=== PATIENT | female | born 1960 | race Caucasian/White ===

== ENCOUNTER 2018-03-04 11:57 | Inpatient (IN) ==
[2018-03-04] MEDS ORDERED: Ondansetron 4 MG/2 ML VIAL IVP ONE (12:01)
[2018-03-04] MEDS ORDERED: *HR* FentaNYL (PF) 100 MCG/2 ML VIAL IVP ONE ×2 (12:01→12:51)
[2018-03-04] MEDS ORDERED: Ketorolac 15 MG/ML VIAL IVP ONE (12:01)
[2018-03-04] MEDS ORDERED: Tdap (Boostrix) Vaccine 0.5 ML SYRINGE IM ONE (12:02)
--- NOTE | 2018-03-04 12:11 | Emergency Department Note ---
Disposition Clinical Impression: Shoulder dislocation Qualifiers: Encounter type: initial encounter Laterality: right Qualified Code(s): S43.004A - Unspecified dislocation of right shoulder joint, initial encounter Facial laceration Qualifiers: Encounter type: initial encounter Qualified Code(s): S01.81XA - Laceration without foreign body of other part of head, initial encounter Disposition: Admitted As Inpatient Condition: Good Instructions: Shoulder Dislocation Exercises (GEN), Shoulder Dislocation (ED), Laceration (ED), Head Injury (ED) Prescriptions: HYDROcodone/Acet 10/325 mg [[place] 10-325 mg] 1 tab PO Q6HR PRN 3 Days #20 tab PRN Reason: Pain Ibuprofen [Motrin] 800 mg PO Q8HR PRN #14 tablet PRN Reason: Pain Referrals: Richard Flores DO [Non-Partnered Physician] - Forms: ED Satisfaction Letter Time of Disposition: 13:58 Trauma HPI - General Chief Complaint: ED Trauma Stated Complaint: Ran over by horse Time Seen by Provider: 03/04/18 11:59 Source: patient, EMS Mode of arrival: EMS Limitations: no limitations Nursing Notes Reviewed: Yes Vital Signs Reviewed: Yes - History of Present Illness HPI Narrative: Patient states she was trampled by a horse just prior to arrival. She complains of right humerus pain and neck pain. Possible loss of consciousness. She does not take blood thinners. She denies other head injury, chest injury , abdominal pain, pain to any of her extremities other than her right humerus. No hip or pelvic pain. Patient given morphine prehospital by EMS with no improvement in pain. Pt Subjective Complaint: injury - Related Data Previous Rx's Medication Instructions Recorded HYDROcodone/Acet 10/325 mg [[place] 1 tab PO Q6HR PRN 3 Days #20 tab 03/04/18 10-325 mg] Ibuprofen [Motrin] 800 mg PO Q8HR PRN #14 tablet 03/04/18 Allergies Allergy/AdvReac Type Severity Reaction Status Date / Time Amoxicillin [From Augmentin] Allergy Rash Verified 07/27/15 19:15 cephalexin [From Keflex] Allergy Rash Verified 07/27/15 19:15 clavulanic acid Allergy Rash Verified 07/27/15 19:15 [From Augmentin] Penicillins Allergy Rash Verified 07/27/15 19:15 All systems ED: reviewed and negative except as stated. Constitutional: Reports: as per HPI Eyes: Reports: as per HPI ENT ED: Reports: as per HPI Cardiovascular: Reports: as per HPI Respiratory: Reports: sputum production Gastrointestinal: Reports: as per HPI Genitourinary: Reports: as per HPI Musculoskeletal: Reports: neck pain, other (Right humerus pain) Integumentary: Reports: other (Laceration to forehead) Neurological: Reports: as per HPI Psychiatric: Reports: as per HPI Endocrine: Reports: as per HPI Hematological/Lymphatic: Reports: as per HPI Allergic/Immunologic: Reports: as per HPI Past Medical History - Past Medical History Source: patient Medical history: Reports: no medical history Surgical history: Reports: breast surgery 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 - Social History Smoking Status: Never smoker Alcohol use: Reports: none Drug use: Reports: none Physical Exam - General Limitations: other (Uncomfortable appearing) General appearance: alert, anxious - Head Head exam: other (2.5 cm transverse superficial abrasion to forehead) - Eye Eye exam: Present: normal appearance, PERRL - ENT ENT exam: normal exam - Neck Neck exam: Present: normal inspection, full ROM - Chest Chest inspection: Present: normal inspection, symmetric chest wall rise - Respiratory Respiratory exam: Present: normal lung sounds bilaterally - Cardiovascular Cardiovascular exam: Present: regular rate, normal rhythm, normal heart sounds - Abdominal Exam Abdominal exam: Present: soft, Non-Tender. Absent: tenderness - Rectal Exam Rectal exam: Present: deferred - Expanded Upper Extremity Exam Shoulder exam: Present: tenderness, swelling, deformity, other (Decreased range of motion at proximal humerus). Absent: full ROM Arm exam: Present: tenderness, swelling. Absent: full ROM Elbow exam: Present: normal inspection Forearm/Wrist exam: Present: normal inspection Hand exam: Present: normal inspection - Neurological Exam Neurological exam: Present: alert, oriented X3, CN II-XII intact - Psychiatric Psychiatric exam: Present: anxious - Skin Skin exam: Present: warm, dry Course Course Narrative: Patient presents after a blunt injury from a horse. Concern for fracture to her right proximal humerus. Superficial laceration to forehead. She complains of neck pain so also image her head and neck by CT scan. Tetanus to be updated. Analgesics to be offered - Reevaluation(s) Reevaluation #1: Orthopedics at bedside to perform closed reduction (Dr. Flores). Sedation performed by or. Patient tolerated procedure well. Orthopedist recommends outpatient follow-up in his office with an arm sling. Analgesics to be ordered Reevaluation #2: Dr. Flores has reviewed the post reduction films. He recs admission to medicine service - Consultations Consultation #1: call placed to Dr. Flores, ortho phonograph mechanic. xray images sent to Dr. Flores. He will evaluate patient in ER Vital Signs Temperature 97.9 F 03/04/18 12:00 Pulse Rate 100 03/04/18 12:00 Respiratory Rate 20 03/04/18 12:00 Blood Pressure 155/77 03/04/18 12:00 O2 Sat by Pulse Oximetry 98 03/04/18 12:00 Temperature 97.9 F 03/04/18 12:00 Pulse Rate 79 03/04/18 14:07 Respiratory Rate 14 03/04/18 14:07 Blood Pressure 139/84 03/04/18 14:07 O2 Sat by Pulse Oximetry 100 03/04/18 14:07 Oxygen Delivery Oxygen Delivery [] Nasal Cannula Oxygen Delivery [] Nasal Cannula Oxygen Delivery [] Nasal Cannula Oxygen Delivery Room Air Procedures - Laceration Laceration 1 Site: face Side (If applicable): left Description: linear Depth: simple, single layer Pre-repair: irrigated extensively Skin layer closed with: skin glue - Orthopedic Fracture Reduction Fracture #1 Consent Obtained: written consent Time Out Performed: Yes Side: right Fracture Reduction Location: humerus ASA Classification: CLASS I-Normal, healthy patient Analgesia: procedural sedation Technique: direct manipulation Post Reduction X-rays Demonstrate: other Splint Applied: Yes Patient Tolerated Procedure: well Trauma - Radiology Data Radiology results reviewed: Yes I reviewed the patient's radiology results.
[2018-03-04] MEDS ORDERED: *HR* Propofol 500 MG/50 ML BOTTLE IVP ONE (13:29)
[2018-03-04] MEDS ORDERED: Naloxone 0.4 MG/ML INJ IVP PRN (14:47)
[2018-03-04 14:53] LABS: Basophils % 0.1 %; Hematocrit 37.3 % (35.3-44.9); Hemoglobin 12.7 g/dL (11.5-15.4); Immature Granulocytes % 0.5 % (0-4); Lymphocytes # 0.6 K/mcL (0.6-4.6); Lymphocytes % 5.7 %; Mean Corpuscular Hemoglobin 29.8 pg (28.0-33.3); Mean Corpuscular Volume 87.6 fL (83.0-100.0); Mean Platelet Volume 11.6 fL (9.4-12.4); Monocytes # 0.5 K/mcL (0.0-1.3); Monocytes % 4.7 %; Neutrophils # 9.9 K/mcL (1.6-8.9); Platelet Count 151 K/mcL (140-400); Red Blood Count 4.26 M/mcL (3.82-4.97); Red Cell Distribution Width 13.8 % (11.5-14.5)
[2018-03-04] MEDS ORDERED: 0.9 % Sodium Chloride 1,000 ML IVC SCH (15:00)
[2018-03-04 15:01] LABS: INR 1.1; Prothrombin Time 12.4 Seconds (9.4-12.1)
[2018-03-04 15:12] LABS: BUN/Creatinine Ratio 21 (6-26); Blood Urea Nitrogen 14 mg/dL (6-20); Carbon Dioxide 26 mEq/L (23-29); Chloride 112 mEq/L (98-107); Creatine Kinase 112 Units/L (30-223); Glucose 135 mg/dL (70-105); Magnesium 1.9 mg/dL (1.6-2.6); Osmolality,Calculated 299 (280-300); Phosphorous 2.3 mg/dL (2.7-4.5); Potassium 4.2 mEq/L (3.5-5.1); Sodium 143 mEq/L (136-145); eGFR For African Americans > 60 (> 60); eGFR For Non-African Americans > 60 (> 60)
--- NOTE | 2018-03-04 15:31 | Internal Med History&Physical ---
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 she sustained loss of consciousness after which she came to with severe shoulder pain. In the ER she was noted to havepossible dislocation. A shoulder xray was done which showed possible dislocation and fracture of the neck of the humerus. A reduction was unsuccessfully attempted in the ER. She has been seen by orthopedic surgery and is scheduled for shoulder surgery Past Med Surg Social Fam HX - Past Medical History Medical history: no medical history Psychiatric history: no psych history - Past Surgical History Surgical History: breast surgery Additional surgical history: breast reduction - Social History Smoking Status: Never smoker Smokeless Tobacco Status: No Alcohol use: none Drug use: none Internal Medicine - H&P: Meds Cholecalciferol (Vitamin D3) [Vitamin D] 2,000 unit PO DAILY 03/04/18 [History] HYDROcodone/Acet 10/325 mg [[place] 10-325 mg] 1 tab PO Q6HR PRN 3 Days #20 tab [Rx] Ibuprofen [Motrin] 800 mg PO Q8HR PRN #14 tablet 03/04/18 [Rx] Meloxicam 15 mg PO DAILY 03/04/18 [History] Multivit-Min/FA/Lycopen/Lutein [A Thru Z Select Multivit Tab] 1 tab PO DAILY 11/17 [History] 3 Allergy/AdvReac Type Severity Reaction Status Date / Time Amoxicillin [From Augmentin] Allergy Rash Verified 07/27/15 19:15 cephalexin [From Keflex] Allergy Rash Verified 07/27/15 19:15 clavulanic acid Allergy Rash Verified 07/27/15 19:15 [From Augmentin] Penicillins Allergy Rash Verified 07/27/15 19:15 All Systems PM: A 10-system review of systems was performed and is negative for pertinent findings except as documented above in the HPI. - Constitutional Constitutional: no chills, no fever(s), no night sweats - EENT Eyes: no change in vision, no discharge, no pain, no photophobia Ears: no ear discharge, no ear pain, no tinnitus Nose, mouth and throat: no dysphagia, no nasal discharge, no neck pain, no sore throat - Cardiovascular Cardiovascular ROS IM: no chest pain, no diaphoresis, no dyspnea, no lightheadedness, no palpitations, no syncope - Respiratory Respiratory: no cough, no dyspnea, no wheezing, no excessive phlegm production - Gastrointestinal Gastrointestinal: no abdominal pain, no diarrhea, no hematemesis, no hematochezia, no melena, no nausea, no vomiting - Genitourinary Genitourinary: no change in urinary stream, no dysuria, no flank pain, no hematuria - Musculoskeletal Musculoskeletal ROS IM: as per HPI, no numbness, no tingling Additional comments: has left sided shoulder pain - Integumentary Integumentary IM: no rash, no unusual bruising - Neurological Neurological ROS: no confusion, no convulsions, no focal weakness, no numbness, no tingling, no tremor(s) - Hematologic/Lymphatic Hematologic/Lymphatic: no easy bruising - Constitutional Vitals: Temp Pulse Resp BP Pulse Ox 97.9 F 79 18 158/85 100 03/04/18 12:00 03/04/18 14:07 03/04/18 15:02 03/04/18 15:02 03/04/18 14:07 - Head Head exam: Present: atraumatic, normocephalic - Eye Eye exam: Present: PERRL, conjuntiva pink, sclera anicteric Pupils: Present: PERRL - Neck Neck exam general surgery: Present: supple, trachea midline. Absent: lymphadenopathy - Respiratory Respiratory exam: Present: CTAB. Absent: accessory muscle use, rales, rhonchi, wheezes - Cardiovascular Cardiovascular exam: Present: RRR, +S1, +S2. Absent: diastolic murmur, gallop, rubs, systolic murmur - GI/Abdominal GI/Abdominal exam: Present: normal bowel sounds, soft, no peritoneal signs. Absent: distended, tenderness - Extremities Exam Extremities exam: Present: warm, radial pulses palpable and symmetrical. Absent : calf tenderness, cyanotic, pedal edema Additional comments: left shoulder in sling - Neurological Exam Neurological exam: Present: CN II-XII intact, oriented X3, no focal deficits. Absent: pronater drift, facial droop, speech deficit - Skin Skin exam: Present: dry, intact Internal Med - H&P Results - Labs CBC & Chem 7: 03/04/18 14:43 03/04/18 14:43 Labs: Short CBC 03/04/18 Range/Units 14:43 WBC 11.2 H (4.3-11.1) K/mcL Hgb 12.7 (11.5-15.4) g/dL Hct 37.3 (35.3-44.9) % Plt Count 151 (140-400) K/mcL Neutrophils # 9.9 H (1.6-8.9) K/mcL BMP 03/04/18 14:43 Sodium 143 Potassium 4.2 Chloride 112 H Carbon Dioxide 26 BUN 14 Creatinine 0.66 Glucose 135 H Calcium 9.0 - Assessment and plan (1) Shoulder dislocation Current Visit: Yes Status: Acute Assessment and plan: left shoulder dislocation s/p being run over by a horse. Orthopedic surgery on board. Plan for surgery in am Qualifiers: Encounter type: initial encounter Laterality: right Qualified Code(s): S43.004A - Unspecified dislocation of right shoulder joint, initial encounter (2) Humerus head fracture Current Visit: Yes Status: Acute Assessment and plan: seen by orthopedic surgery. For surgery in am Qualifiers: Qualified Code(s): S42.293A - Other displaced fracture of upper end of unspecified humerus, initial encounter for closed fracture (3) DVT prophylaxis Current Visit: Yes Status: Acute Assessment and plan: heprain sc - Time Spent With Patient Total time spent is greater than 50% in coordination of care (as documented) at patient's floor/unit and/or counseling patient:
[2018-03-04] MEDS: OXYCODONE Oral CONC 10 MG/0.5 ML ORAL.SYG SL SCH ×3 (17:30→23:32)
--- NOTE | 2018-03-04 19:20 | Orthopedic Consult Note ---
Date of Encounter: 03/04/18 Time of Encounter: 19:17 History of Present Illness Chief complaint: Right shoulder pain HPI: Ms. Alegre is a 57 year old [id number] female who was run over/trampled by her horse today. The patient was trying to move the horse from an outdoor posture to an indoor arena where there was shade and fans when the horse apparently disagreed with the plan, and in essence, ran her over. Patient had immediate pain and was unable to use the arm. She was having some vague numbness and tingling in the arm. She was ultimately brought to the emergency room and [facility] were x-rays revealed a glenohumeral dislocation with a greater tuberosity fracture. There was a high index of suspicion for a proximal humerus fracture though this was not well delineated on the x-rays. Patient had a completed workup including CT scan of her neck. I saw the patient in the emergency room. She was noted to have some findings consistent with an axillary nerve injury as well as with the findings as noted. [place] that the patient had a possible chance at a successful reduction if this could be done gently and there was no humeral neck fracture present. With gentle anterior traction and the use of intravenous sedation as administered by the emergency room physician and attempt at closed reduction was made. There was a palpable change in the shoulder. Clinically improved, but x-rays revealed that the head remained dislocated in an anterior inferior position ( subglenoid) the tuberosity fragment and a more normal position and the shaft of the humerus in a more appropriate position. With this irreducible fracture dislocation noted the patient was admitted for more definitive management. 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 I did review the patient's completed history and physical exam as well as emergency room physician documentation. Pertinent orthopedic examination at this time reveals the right shoulder to be somewhat edematous. There is marked diminished sensation in axillary nerve distribution. Distally the sensation in the hand is intact in all 3 major nerves. I reviewed all the x-rays, injury and attempted postreduction films. These show the persistent dislocated humeral head and the shaft and the somewhat isolated greater tuberosity fragment. Impression: Complex fracture dislocation right glenohumeral joint with axillary nerve injury Recommendation: As noted attempt was made to perform a closed reduction in the emergency room but this was unsuccessful due to the presence of a surgical neck fracture with no connection between the head and the shaft. Attempts at reduction did not place any traction on the head. Had a very long discussion with the patient at bedside regarding the diagnosis and potential management options for this fracture. Unfortunately, there is a high risk of avascular necrosis of the humeral head even if we were able to reduce it and or reduce the dislocation and perform an open reduction and internal fixation of the fractures. In addition this would require a prolonged period of time for healing with a distinct possibility of avascular necrosis occurring either soon thereafter or at a later date. We also discussed surgical intervention in the form of a possible hemiarthroplasty. This would require a rotator cuff that is either intact or able to be repaired back to the prosthesis. The other surgical option would be a reverse ball total shoulder arthroplasty that this also has quite significant potential ramifications. Of significant concern is the axillary nerve injury, a reverse ball total shoulder would require axillary nerve function to provide deltoid innervation for functional recovery for a reverse ball shoulder replacement. I discussed with the patient that no matter what approach we take the shoulder will always have some residual functional loss. After thorough discussion patient elected to proceed with a hemiarthroplasty of the shoulder. We discussed the surgery as well as the possibility of her her requiring a reverse ball total shoulder should there be instability or other complicating features with a hemiarthroplasty. Spoke at length of the risks and complications including but not limited to bleeding, infection, further nerve injury, recurrent instability, stiffness and/or the need for further surgery or chronic pain management. Patient has requested we proceed with the hemiarthroplasty. Have scheduled her for surgery for tomorrow when operating time is available. Thank you very much for allowing me to see and care for Mrs. Alegre. This is an unfortunate injury with significant long-term ramifications. Sincerely, Richard Flores,DO Past Med Surg Social Fam HX - Past Medical History Medical history: no medical history Psychiatric history: no psych history - Past Surgical History Surgical History: breast surgery Additional surgical history: breast reduction - Social History Smoking Status: Never smoker Smokeless Tobacco Status: No Alcohol use: none Drug use: none - Family History Mother Age: 84 Family Member Ethnicity: Non- Living Status: Still Living Hx Family Cardiac Disorders: No Hx Family Respiratory Disorders: No Hx Family Cancer: No Hx Family GI Disorders: No Hx Family Genitourinary Disorders: No Hx Family Endocrine Disorder: No Hx Family Musculoskeletal Disorders: No Hx Family Neuromuscular Disorders: No Hx Family Neurologic Disorders: No Hx Family HEENT Disorders: No Hx Family Autoimmune Disorders: No Hx Family Reproductive Disorders: No Hx Family Psychosocial Disorders: No Hx Family Medical Disorders: No Medications and Allergies Cholecalciferol (Vitamin D3) [Vitamin D] 2,000 unit PO DAILY 03/04/18 [History] HYDROcodone/Acet 10/325 mg [[place] 10-325 mg] 1 tab PO Q6HR PRN 3 Days #20 tab [Rx] Ibuprofen [Motrin] 800 mg PO Q8HR PRN #14 tablet 03/04/18 [Rx] Meloxicam 15 mg PO DAILY 03/04/18 [History] Multivit-Min/FA/Lycopen/Lutein [A Thru Z Select Multivit Tab] 1 tab PO DAILY 11/17 [History] 3 Allergy/AdvReac Type Severity Reaction Status Date / Time Amoxicillin [From Augmentin] Allergy Rash Verified 07/27/15 19:15 cephalexin [From Keflex] Allergy Rash Verified 07/27/15 19:15 clavulanic acid Allergy Rash Verified 07/27/15 19:15 [From Augmentin] Penicillins Allergy Rash Verified 07/27/15 19:15 All Systems Reviewed: The remainder of the systems were reviewed and are negative Physical Exam - Constitutional Vitals: Temp Pulse Resp BP Pulse Ox 98.4 F 71 16 147/85 99 03/04/18 15:40 03/04/18 15:40 03/04/18 15:40 03/04/18 15:40 03/04/18 16:12 Results - Labs Result Diagrams: 03/04/18 14:43 03/04/18 14:43 Labs: Abnormal lab results WBC 11.2 K/mcL (4.3-11.1) H 03/04/18 14:43 Neutrophils # 9.9 K/mcL (1.6-8.9) H 03/04/18 14:43 PT 12.4 Seconds (9.4-12.1) H 03/04/18 14:43 Chloride 112 mEq/L (98-107) H 03/04/18 14:43 Glucose 135 mg/dL (70-105) H 03/04/18 14:43 Phosphorus 2.3 mg/dL (2.7-4.5) L 03/04/18 14:43 All other labs normal. - Diagnostic results Shoulder x-ray: image reviewed Consult Discharge Plan - Plan Referrals: Alejandra Jean MD [Primary Care Provider] -
[2018-03-05 01:14] LABS: Basophils % 0.1 %; Eosinophils % 0.4 %; Hematocrit 34.2 % (35.3-44.9); Hemoglobin 11.6 g/dL (11.5-15.4); Immature Granulocytes % 0.4 % (0-4); Lymphocytes # 1.7 K/mcL (0.6-4.6); Lymphocytes % 21.9 %; Mean Corpuscular HGB Conc 33.9 g/dL (31.6-35.5); Mean Corpuscular Hemoglobin 29.4 pg (28.0-33.3); Mean Corpuscular Volume 86.6 fL (83.0-100.0); Monocytes # 0.6 K/mcL (0.0-1.3); Monocytes % 7.6 %; Neutrophils # 5.5 K/mcL (1.6-8.9); Platelet Count 157 K/mcL (140-400); Red Blood Count 3.95 M/mcL (3.82-4.97); Red Cell Distribution Width 14.2 % (11.5-14.5); Segmented Neutrophils % 69.6 %
[2018-03-05 01:31] LABS: BUN/Creatinine Ratio 20 (6-26); Blood Urea Nitrogen 14 mg/dL (6-20); Calcium 8.8 mg/dL (8.6-10.3); Carbon Dioxide 22 mEq/L (23-29); Chloride 112 mEq/L (98-107); Glucose 122 mg/dL (70-105); Osmolality,Calculated 296 (280-300); Phosphorous 2.9 mg/dL (2.7-4.5); Potassium 3.7 mEq/L (3.5-5.1); Sodium 142 mEq/L (136-145); eGFR For African Americans > 60 (> 60); eGFR For Non-African Americans > 60 (> 60)
[2018-03-05] MEDS: OXYCODONE Oral CONC 10 MG/0.5 ML ORAL.SYG SL SCH ×5 (03:06→19:52)
--- NOTE | 2018-03-05 08:32 | Internal Med Progress Note ---
<Reinaldo Becerril - Last Filed: 03/05/18 16:37> Date of Encounter: 03/05/18 Time of Encounter: 11:00 - Assessment and plan (1) Humerus head fracture Current Visit: Yes Status: Acute Assessment and plan: Orthopedic surgery planning to operate. Qualifiers: Encounter type: initial encounter Fracture type: closed Laterality: right Qualified Code(s): S42.291A - Other displaced fracture of upper end of right humerus, initial encounter for closed fracture (2) Shoulder dislocation Current Visit: Yes Status: Acute Assessment and plan: Unable to be reduced in the ED. Orthopedic surgery planning for operation. Qualifiers: Encounter type: initial encounter Laterality: right Qualified Code(s): S43.004A - Unspecified dislocation of right shoulder joint, initial encounter (3) DVT prophylaxis Current Visit: Yes Status: Acute (4) Coccygeal pain, acute Current Visit: Yes Status: Acute Assessment and plan: X-ray of sacrum and coccyx was negative. - Time Spent With Patient Total time spent is greater than 50% in coordination of care (as documented) at patient's floor/unit and/or counseling patient: - Subjective Interval history: Ms. Alegre is a 57-year-old female who presented yesterday after being run over by a horse. 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 Admits to LOC, followed by severe shoulder pain. Patient was found to have a left humeral fracture with possible dislocation. Attempts at reduction were unsuccessful in the ED. Orthopedic surgery consulted. 03/05: No acute events overnight. During this entire patient was resting comfortably in bed. Patient complains of some shoulder pain, but admits to relief with pain medication. She is also complaining of some coccygeal pain, and nausea. Denies chest pain, shortness of breath, vomiting, numbness, or tingling. Denies bowel movement, but admits to flatus. No difficulty urinating. - Constitutional Vitals: Temp Pulse Resp BP Pulse Ox 97.7 F 83 18 158/92 96 03/05/18 07:02 03/05/18 07:02 03/05/18 07:02 03/05/18 07:02 03/05/18 07:02 General appearance: Present: A&O X 3, pleasant, answers questions appropriately Exam: Head: Atraumatic and normocephalic Eyes: Pupils PERRL, EOMI, conjunctiva pink, sclerae anicteric Neck: Supple, trachea midline Respiratory: Clear to auscultation bilaterally. No wheezes, rales, or rhonchi noted. Heart: RRR, plus S1, plus S2. No murmurs, clicks, or rubs noted. GI: Nondistended, nontender, soft, normal bowel sounds. Extremities: Warm, radial pulses palpable and symmetrical. Right arm and shoulder sling in place. No cyanosis or pedal edema noted. Neuro: Alert and oriented 3, no focal deficits, no speech difficulty. Skin: Warm, dry and intact. Internal Medicine: Result - Labs CBC & Chem 7: 03/05/18 00:39 03/05/18 00:39 Labs: Short CBC 03/05/18 Range/Units 00:39 WBC 7.9 (4.3-11.1) K/mcL Hgb 11.6 (11.5-15.4) g/dL Hct 34.2 L (35.3-44.9) % Plt Count 157 (140-400) K/mcL Neutrophils # 5.5 (1.6-8.9) K/mcL BMP 03/05/18 00:39 Sodium 142 Potassium 3.7 Chloride 112 H Carbon Dioxide 22 L BUN 14 Creatinine 0.70 Glucose 122 H Calcium 8.8 - ABG Interpretation ABG results: PT/INR, D-dimer PT 12.4 Seconds (9.4-12.1) H 03/04/18 14:43 - VTE Documentation of Mechanical Device: Intermittent pneumatic compression device Consult Discharge Plan - Plan Referrals: Alejandra Jean MD [Primary Care Provider] - <Derrell Stewart - Last Filed: 03/05/18 16:51> Date of Encounter: 03/05/18 - Assessment and plan (1) Shoulder dislocation Current Visit: Yes Status: Acute Qualifiers: Encounter type: initial encounter Laterality: right Qualified Code(s): S43.004A - Unspecified dislocation of right shoulder joint, initial encounter (2) Humerus head fracture Current Visit: Yes Status: Acute Qualifiers: Encounter type: initial encounter Fracture type: closed Laterality: right Qualified Code(s): S42.291A - Other displaced fracture of upper end of right humerus, initial encounter for closed fracture (3) DVT prophylaxis Current Visit: Yes Status: Acute (4) Coccygeal pain, acute Current Visit: Yes Status: Acute - Time Spent With Patient Total time spent is greater than 50% in coordination of care (as documented) at patient's floor/unit and/or counseling patient: - Constitutional Vitals: Temp Pulse Resp BP Pulse Ox 98.1 F 69 17 137/80 97 03/05/18 15:30 03/05/18 15:30 03/05/18 15:30 03/05/18 15:30 03/05/18 15:30 Internal Medicine: Result - Labs CBC & Chem 7: 03/05/18 00:39 03/05/18 00:39 Labs: Short CBC 03/05/18 Range/Units 00:39 WBC 7.9 (4.3-11.1) K/mcL Hgb 11.6 (11.5-15.4) g/dL Hct 34.2 L (35.3-44.9) % Plt Count 157 (140-400) K/mcL Neutrophils # 5.5 (1.6-8.9) K/mcL BMP 03/05/18 00:39 Sodium 142 Potassium 3.7 Chloride 112 H Carbon Dioxide 22 L BUN 14 Creatinine 0.70 Glucose 122 H Calcium 8.8 - ABG Interpretation ABG results: PT/INR, D-dimer PT 12.4 Seconds (9.4-12.1) H 03/04/18 14:43 - Impressions Impressions Sacrum and Coccyx X-Ray 03/05/18 11:21 IMPRESSION: No acute osseous abnormality of the sacrum or coccyx. D/ / Luis Genao MD / Luis Genao MD Interpreting Provider: Luis Genao MD - Attending Attestation I examined this patient and my medical decision-making was reviewed with the Resident Physician on 03/05/18. I agree with the documented findings, disposition and treatment plan as described except to the extent set forth below. 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 She was having some sacral pain and xray is negative. Dr. Alegre is having some pain. Awaiting OR. Exam alert. Comfortable at this time Heart not tachy Mucus membranes dry No wheeze Sling in place I/P 1. R humeral fracture - OR today. 2. Sacral pain Further diagnoses and plan as above.
[2018-03-05] MEDS ORDERED: Ondansetron 4 MG/2 ML VIAL IVP PRN (11:19)
[2018-03-05] MEDS ORDERED: OXYCODONE Oral CONC 10 MG/0.5 ML ORAL.SYG SL ONE (11:31)
--- NOTE | 2018-03-05 15:29 | Anesthesia Evaluation PreOp ---
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) Other Medical History: Denies Any Significant HX Anesthesia History: No Prior Anesthetic Complications, Past Anesthesia (breast reduction) Alcohol Use: none Drug use: none Medications and Allergies Cholecalciferol (Vitamin D3) [Vitamin D] 2,000 unit PO DAILY 03/04/18 [History] HYDROcodone/Acet 10/325 mg [[place] 10-325 mg] 1 tab PO Q6HR PRN 3 Days #20 tab [Rx] Ibuprofen [Motrin] 800 mg PO Q8HR PRN #14 tablet 03/04/18 [Rx] Meloxicam 15 mg PO DAILY 03/04/18 [History] Multivit-Min/FA/Lycopen/Lutein [A Thru Z Select Multivit Tab] 1 tab PO DAILY 11/17 [History] 3 Allergy/AdvReac Type Severity Reaction Status Date / Time Amoxicillin [From Augmentin] Allergy Rash Verified 07/27/15 19:15 cephalexin [From Keflex] Allergy Rash Verified 07/27/15 19:15 clavulanic acid Allergy Rash Verified 07/27/15 19:15 [From Augmentin] Penicillins Allergy Rash Verified 07/27/15 19:15 - Meds/Allergy Pre-op Review Medications Reviewed: Yes Allergies Reviewed: Yes Beta Blockers on Current Med List: No Anesthesia Results - Labs 03/05/18 00:39 03/05/18 00:39 - Imaging Additional studies: 03-04-18 CT C-spine: No acute abnormality of the cervical spine. 03-04-18 CT head: No acute intracranial abnormality. 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
[2018-03-05] MEDS ORDERED: Ketorolac 15 MG/ML VIAL IVP ONE (16:50)
[2018-03-05] MEDS ORDERED: *HR* Propofol 200 MG/20 ML VIAL IVP ONE ×2 (18:24→19:13)
[2018-03-05] MEDS ORDERED: *HR* FentaNYL (PF) 100 MCG/2 ML VIAL ONE ×2 (18:24→19:13)
[2018-03-05] MEDS ORDERED: *HR* Midazolam HCl 2 MG/2 ML VIAL ONE ×2 (18:24→19:13)
[2018-03-05] MEDS ORDERED: Lidocaine -MPF 2% 2 ML VIAL ONE ×2 (18:27→19:13)
[2018-03-05] MEDS ORDERED: Acetaminophen IV 1,000 MG/100 ML INFUS..BTL ONE (19:07)
[2018-03-05] MEDS ORDERED: *HR* Succinylcholine 200 MG/10 ML VIAL IVP ONE (19:13)
[2018-03-05] MEDS ORDERED: Lidocaine -MPF 4% 5 ML AMPUL ONE (19:13)
[2018-03-05] MEDS ORDERED: Ethanol\\Acetic Acid\\Na Ace\\Ben 1,000 ML IRRIG.SOLN IR ONE (19:28)
[2018-03-05] MEDS ORDERED: Clindamycin 900 MG/50 ML 900 MG/50 ML IV.SOLN IVPB ONE (19:58)
[2018-03-05] MEDS ORDERED: Pregabalin 75 MG CAPSULE ONE (19:58)
[2018-03-05] MEDS ORDERED: Ondansetron 4 MG/2 ML VIAL ONE (21:37)
[2018-03-05] MEDS ORDERED: Dexamethasone 4 MG/ML VIAL ONE (21:37)
[2018-03-05] MEDS ORDERED: *HR* Magnesium Sulfate 1 GM/2 ML VIAL ONE (23:38)
[2018-03-06] MEDS ORDERED: *HR* Labetalol 20 MG/4 ML SYRINGE IVP PRN (00:20)
[2018-03-06] MEDS ORDERED: Naloxone 0.4 MG/ML INJ IVP PRN (00:27)
[2018-03-06] MEDS ORDERED: Ondansetron 4 MG/2 ML VIAL IVP PRN (00:27)
[2018-03-06] MEDS ORDERED: 0.9 % Sodium Chloride 1,000 ML IVC SCH (00:27)
--- NOTE | 2018-03-06 00:40 | Anesthesia Evaluation Post Op ---
Date of Encounter: 03/06/18 Time of Encounter: 00:39 - Vital Signs Vital Signs: Vital Signs/O2 Sat/Glucose, Most Current Temp Pulse Resp BP Pulse Ox 03/06/18 00:36 98.8 F 62 14 160/89 96 03/06/18 00:26 98.8 F 68 16 153/87 93 03/06/18 00:16 79 12 157/87 93 03/06/18 00:06 81 12 166/79 99 03/05/18 23:56 98.6 F 75 16 163/77 98 - Airway Airway: Non-obstructed - Cardiovascular Regular Rate - Mental Status Mental Status: Alert & Oriented, Answers Appropriately, Asleep with brisk response to light stimulation - Pain Pain Scale: 0 Pain Scale used: Numeric (1 - 10) - Nausea Vomiting Nausea Vomiting: Not Present - Hydration Hydration: Tolerates oral liquids, Able to void, Has not voided - Discharge PostOp Status: Transfer Patient to floor Anes Supervising Prov Stmt: Pt seen/evaluated, VSS And pt has met criteria for discharge to floor. - MD Ana
[2018-03-06] MEDS: OXYCODONE Oral CONC 10 MG/0.5 ML ORAL.SYG SL SCH ×5 (00:45→15:38)
--- NOTE | 2018-03-06 00:51 | Operative Note ---
Date of procedure: 03/05/18 Pre-op diagnosis: 1. Comminuted fracture right proximal humerus 2. irreducible glenohumeral Post-op diagnosis: same Procedure: 1. Hemiarthroplasty right shoulder Implants: Biomet 8 x 122 mm humeral fracture stem with a 46 mm x 21 mm humeral head Complications: None Anesthesia: TAWANNA Surgeon: Richard Flores Was there an psychiatric technician assistant present: No Estimated blood loss (cc): 200 Specimen: None Condition: stable Disposition: PACU Procedure in Detail: Gross findings: Preoperative x-rays revealed a complex fracture dislocation of the right shoulder. The patient had a glenohumeral dislocation with isolation of the humeral head from the main shaft of the humerus. This was associated with an isolated greater tuberosity fracture. The head was is reducible, it was present in the anterior inferior subglenoid region. Clinically the patient had pain and swelling about the right shoulder with numbness in the axillary nerve distribution consistent with axillary nerve injury. Intraoperative was noted to be tremendous amount of soft tissue swelling and damage. There was the complex fracture noted. The head was present in the infra glenoid region anteriorly causing intense pressure upon the anterior structures including the axillary nerve and the muscular cutaneous nerve in the inferior coracoid region. There was massive amount of soft tissue injury including rupture of the clavipectoral fascia and marked amount of stripping from the humerus just distal to the fracture site. The long head of the biceps tendon was intact. The head was ultimately able to be removed from the inferior glenoid region. The subscapularis with the anterior tuberosities was isolated and tagged with FiberWire suture for later repair. Likewise the greater tuberosity fragment was tagged with FiberWire suture and traction for repair. The glenoid was noted to have relatively spared articular surfaces. No gross labral tears were noted. A cemented hemiarthroplasty was performed without complicating features noted. After placement of the prosthesis and repair of the tuberosities a well functioning stable shoulder was identified. Procedure patient was taken the operating room and while the hospital bed was administered general anesthesia. Patient was now transferred to the operating room table patient was now placed in modified beachchair position on the shoulder table with all pressure points well-padded. The right shoulder and pectoral girdle area now prepped and draped in normal standard fashion for surgery. Incision was made from the level of the clavicle and carried down the arm. Dissection was carried through the subcutaneous tissues where marked amount of hematoma and fluid was encountered. Swelling was quite significant. The deltopectoral interval was developed. The cephalic vein was retracted lateral with the deltoid. Massive amount of hematoma was now encountered. At this time the fracture hematoma was irrigated and evacuated. The biceps tendon was isolated and then the greater tuberosity fragment was isolated and tagged with # 2 FiberWire suture for traction of later repair. The head was now able to be removed from the infra glenoid region with the head being divided from the lesser tuberosity which was likewise tagged with #2 FiberWire suture for traction and repair. The glenoid was irrigated. No gross disturbance of the glenoid was noted. At this time attention was turned to the humerus. The humerus was reamed by hand up to and including a size 10. Size 10 trial was then placed. The trial was placed in about 30 degrees of retroversion. The head size was going to be a 46 with either a 21 or 24 mm height. At this time the trial components are removed. Cement restrictor was placed distally in the humerus. Numerous #5 FiberWire suture were now placed in the posterior, greater tuberosity fragment for later repair of the tuberosities. The humeral canal was then irrigated and dried with a combination of suction and sponges. The back table cement was mixed and the appropriate time the cement was instilled into the femur which was filled in a retrograde manner. The humeral stem was then placed into the cement and impacted in about 30 degrees of retroversion until it sat at the appropriate level. Excess cement was trimmed away. Compression was maintained upon the implants until cement had fully hardened. Cement cleanup was performed. This is followed by final trialing with a 46 x 21 mm head being selected. The Tapia taper on the stem was then cleaned and dried. The head was then placed and impacted with 3 sharp blows of mallet. Shoulder was now reduced. Excellent stable reduction was identified. The tuberosity fragments were then brought into position and then they multiple #5 FiberWire suture were used to secure the tuberosities to the fracture stem. This was supplemented with bone graft placed between the stem and the tuberosity fragments. Stable shoulder was identified clinically. At this time the wound was closed with #2 strata fix closing the deltopectoral interval. Subtendinous tissue were closed with multiple inverted interrupted 2- 0 undyed Vicryl. Skin was then approximated with a zip lock system followed by skin glue. Sterile dressing consisting of honeycomb foam dressing was applied and secured. Patient was placed into a sling. Patient was now awakened from anesthesia extubating operating room and transferred to the postanesthesia care unit in stable and satisfactory condition. All sponge needle and isthmic counts are correct. No specimens are sent for pathology.
[2018-03-06 01:54] LABS: Basophils % 0.1 %; Eosinophils % 0.1 %; Hematocrit 32.9 % (35.3-44.9); Hemoglobin 11.1 g/dL (11.5-15.4); Immature Granulocytes % 0.4 % (0-4); Lymphocytes # 0.6 K/mcL (0.6-4.6); Lymphocytes % 7.7 %; Mean Corpuscular HGB Conc 33.7 g/dL (31.6-35.5); Mean Corpuscular Hemoglobin 29.7 pg (28.0-33.3); Mean Platelet Volume 11.9 fL (9.4-12.4); Monocytes # 0.3 K/mcL (0.0-1.3); Monocytes % 3.4 %; Neutrophils # 6.7 K/mcL (1.6-8.9); Platelet Count 132 K/mcL (140-400); Red Blood Count 3.74 M/mcL (3.82-4.97); Red Cell Distribution Width 14.2 % (11.5-14.5); Segmented Neutrophils % 88.3 %
[2018-03-06 02:13] LABS: BUN/Creatinine Ratio 22 (6-26); Blood Urea Nitrogen 13 mg/dL (6-20); Calcium 8.6 mg/dL (8.6-10.3); Carbon Dioxide 23 mEq/L (23-29); Chloride 110 mEq/L (98-107); Glucose 140 mg/dL (70-105); Osmolality,Calculated 290 (280-300); Sodium 139 mEq/L (136-145); eGFR For African Americans > 60 (> 60); eGFR For Non-African Americans > 60 (> 60)
[2018-03-06] MEDS: Clindamycin 900 MG/50 ML 900 MG/50 ML IV.SOLN IVPB SCH ×2 (07:55→15:52)
--- NOTE | 2018-03-06 09:45 | Internal Med Progress Note ---
Date of Encounter: 03/06/18 Time of Encounter: 09:45 - Assessment and plan (1) Humerus head fracture Current Visit: Yes Status: Acute Qualifiers: Encounter type: initial encounter Fracture type: closed Laterality: right Qualified Code(s): S42.291A - Other displaced fracture of upper end of right humerus, initial encounter for closed fracture (2) Shoulder dislocation Current Visit: Yes Status: Acute Qualifiers: Encounter type: initial encounter Laterality: right Qualified Code(s): S43.004A - Unspecified dislocation of right shoulder joint, initial encounter (3) Coccygeal pain, acute Current Visit: Yes Status: Acute (4) DVT prophylaxis Current Visit: Yes Status: Acute - Time Spent With Patient Total time spent is greater than 50% in coordination of care (as documented) at patient's floor/unit and/or counseling patient: - Subjective Interval history: Ms. Alegre is a 57-year-old female who presented yesterday after being run over by a horse. 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 Admits to LOC, followed by severe shoulder pain. Patient was found to have a left humeral fracture with possible dislocation. Attempts at reduction were unsuccessful in the ED. Orthopedic surgery consulted. 03/05: No acute events overnight. During this entire patient was resting comfortably in bed. Patient complains of some shoulder pain, but admits to relief with pain medication. She is also complaining of some coccygeal pain, and nausea. Denies chest pain, shortness of breath, vomiting, numbness, or tingling. Denies bowel movement, but admits to flatus. No difficulty urinating. 03/06: No acute events overnight. Pt underwent hemiarthroplasty of right shoulder overnight. Pt resting comfortably in bed with no new complaints. States nausea resolved with medication. Denies chest pain, shortness of breath, vomiting, difficulty urinating, or diarrhea. Pt states she has been passing flatus since surgery. Denies any headache, numbness, or tingling. - Constitutional Vitals: Temp Pulse Resp BP Pulse Ox 99.4 F 87 17 124/87 94 03/06/18 06:55 03/06/18 06:55 03/06/18 06:55 03/06/18 06:55 07/05/18 06:55 General appearance: Present: A&O X 3, pleasant, answers questions appropriately Exam: Head: Atraumatic and normocephalic Eyes: Pupils PERRL, EOMI, conjunctiva pink, sclerae anicteric Neck: Supple, trachea midline Respiratory: Clear to auscultation bilaterally. No wheezes, rales, or rhonchi noted. Heart: RRR, plus S1, plus S2. No murmurs, clicks, or rubs noted. GI: Nondistended, nontender, soft, normal bowel sounds. Extremities: Warm, radial pulses palpable and symmetrical. Right arm and shoulder brace in place. No cyanosis or pedal edema noted. Neuro: Alert and oriented 3, no focal deficits, no speech difficulty. Skin: Warm, dry and intact. healing laceration on forehead from encounter with horse. Internal Medicine: Result - Labs CBC & Chem 7: 03/06/18 00:59 03/06/18 00:59 Labs: Short CBC 03/06/18 Range/Units 00:59 WBC 7.6 (4.3-11.1) K/mcL Hgb 11.1 L (11.5-15.4) g/dL Hct 32.9 L (35.3-44.9) % Plt Count 132 L (140-400) K/mcL Neutrophils # 6.7 (1.6-8.9) K/mcL BMP 03/06/18 00:59 Sodium 139 Potassium 4.0 Chloride 110 H Carbon Dioxide 23 BUN 13 Creatinine 0.59 L Glucose 140 H Calcium 8.6 - ABG Interpretation ABG results: PT/INR, D-dimer PT 12.4 Seconds (9.4-12.1) H 03/04/18 14:43 - Impressions Impressions Sacrum and Coccyx X-Ray 03/05/18 11:21 IMPRESSION: No acute osseous abnormality of the sacrum or coccyx. D/ / Luis Genao MD / Luis Genao MD Interpreting Provider: Luis Genao MD Shoulder X-Ray 03/06/18 00:27 IMPRESSION: Expected postsurgical changes of right humeral hemiarthroplasty. D/ / Loc Owens / Loc Owens Interpreting Provider: Loc Owens - VTE Documentation of Mechanical Device: Intermittent pneumatic compression device Consult Discharge Plan - Plan Referrals: Alejandra Jean MD [Primary Care Provider] -
--- NOTE | 2018-03-06 13:36 | Discharge Summary ---
<Reinaldo Becerril - Last Filed: 03/06/18 13:34> - NOTES TO OUTPATIENT PROVIDER Notes to Outpatient Provider: Ms. Alegre was admitted for R humeral neck fracture. Was taken to the OR late on 03/05 for R hemiarthroplasty with no complications. Date of Encounter: 03/06/18 Time of Encounter: 09:45 - Discharge Diagnosis (1) Humerus head fracture Status: Resolved Assessment and Plan: Taken to OR on 03/05 for R hemiarthroplasty. Qualifiers: Encounter type: initial encounter Fracture type: closed Laterality: right Qualified Code(s): S42.291A - Other displaced fracture of upper end of right humerus, initial encounter for closed fracture (2) Shoulder dislocation Status: Resolved Assessment and Plan: Taken to OR late on 03/05 for R hemiarthroplasty Qualifiers: Encounter type: initial encounter Laterality: right Qualified Code(s): S43.004A - Unspecified dislocation of right shoulder joint, initial encounter (3) Coccygeal pain, acute Status: Acute (4) DVT prophylaxis Status: Acute Hospital course: Ms. Alegre is a 57 year old female - Time Spent with Patient Total time spent providing and/or coordinating discharge services: - Discharge Medications Prescriptions: Aspirin/Calcium Carbonate/Mag [Aspirin Buffered 325 mg Tab] 325 mg PO BID #60 tablet Oxycodone HCl/Acetaminophen [Percocet 5-325 mg Tablet] 1 each PO Q6H PRN 5 Days #20 tablet PRN Reason: Severe Pain Home Medications: Cholecalciferol (Vitamin D3) [Vitamin D3] 2,000 unit PO DAILY 03/04/18 [History] Multivit-Min/FA/Lycopen/Lutein [A Thru Z Select Multivit Tab] 1 tab PO DAILY 11/17 [History] Aspirin/Calcium Carbonate/Mag [Aspirin Buffered 325 mg Tab] 325 mg PO BID #60 tablet 03/06/18 [Rx] Oxycodone HCl/Acetaminophen [Percocet 5-325 mg Tablet] 1 each PO Q6H PRN 5 Days #20 tablet 03/06/18 [Rx] Allergies/Adverse Reactions: 3 Allergy/AdvReac Type Severity Reaction Status Date / Time Amoxicillin [From Augmentin] Allergy Rash Verified 07/27/15 19:15 cephalexin [From Keflex] Allergy Rash Verified 07/27/15 19:15 clavulanic acid Allergy Rash Verified 07/27/15 19:15 [From Augmentin] Penicillins Allergy Rash Verified 07/27/15 19:15 Date of admission: 03/04/18 15:41 Primary care physician: Alejandra Jean MD Discharging clinician: Reinaldo Becerril - Constitutional Vitals: Temp Pulse Resp BP Pulse Ox 98.7 F 83 17 126/74 96 03/06/18 11:31 03/06/18 11:31 03/06/18 11:31 03/06/18 11:31 03/06/18 11:31 General appearance: Present: A&O X 3, pleasant, answers questions appropriately - Patient Status Disposition: Home, Self-Care Condition: Good - Discharge Instructions Follow Up With: Alejandra Jean MD [Primary Care Provider] - Richard Flores DO [Non-Partnered Physician] - (follow up in 2 weeks) - VTE Documentation of Mechanical Device: Intermittent pneumatic compression device <Derrell Stewart - Last Filed: 03/06/18 16:09> Date of Encounter: 03/06/18 - Discharge Diagnosis (1) Humerus head fracture Priority: Primary Status: Resolved Qualifiers: Encounter type: subsequent encounter Fracture type: closed Laterality: right Qualified Code(s): S42.291D - Other displaced fracture of upper end of right humerus, subsequent encounter for fracture with routine healing (2) Shoulder dislocation Priority: Primary Status: Resolved Qualifiers: Encounter type: subsequent encounter Laterality: right Qualified Code(s) : S43.004D - Unspecified dislocation of right shoulder joint, subsequent encounter (3) Coccygeal pain, acute Priority: Secondary Status: Acute Hospital course: Ms. Alegre is a 57 year old female presented to ER after being "run over by a horse." She was found to have R humeral head fracture and admitted. Dr. Alegre was placed in hospital. She was seen by Dr. Flores and taken to OR for total shoulder replacement. She tolerated this well. Today she is afebrile. Pain is controlled and she is ready for discharge home. She will follow up in his office. Discharge discussed with: patient - Time Spent with Patient Total time spent providing and/or coordinating discharge services: 38 min Date of admission: 03/04/18 15:41 Primary care physician: Alejandra Jean MD Consults: Mark Anticipated date of discharge: 03/06/18 - Constitutional Vitals: Temp Pulse Resp BP Pulse Ox 98.6 F 99 17 108/68 95 03/06/18 15:07 03/06/18 15:07 03/06/18 15:07 03/06/18 15:07 03/06/18 15:07 - Head Head exam: Present: normocephalic - Eye Eye exam: Present: EOMI, conjuntiva pink - ENT ENT exam: Present: mucous membranes moist - Respiratory Respiratory exam: Absent: respiratory distress, rhonchi, wheezes - Cardiovascular Cardiovascular exam: Present: RRR. Absent: tachycardia - GI/Abdominal GI/Abdominal exam: Present: soft - Extremities Exam Additional comments: Sling R arm - Neurological Exam Neurological exam: Present: alert, oriented X3 - Skin Skin exam: Present: dry, warm - Patient Status Functional capacity at discharge: independent ambulation Overall status at discharge: patient is progressing back to baseline - Diet and Activity Activity: other (Per Dr Flores) Diet: advance to your usual diet
[2018-03-06 15:08] VITALS: BP 108/68
[2018-03-06] MEDS ORDERED: Acetaminophen 325 MG TABLET PO ONE (15:36)
[2018-03-06] MEDS ORDERED: *HR* Enoxaparin 30 MG/0.3 ML SYRINGE SQ SCH (18:00)
== END 2018-03-06 18:01 | disposition home or self-care (01) | DRG 959 ==
LOC: 3BNU 11:57 → EMEROO 11:57 → 3BNU 15:13 → SUATTDRO 15:41 → 3NENU 19:18
PROVIDERS: ADMIT Student in an Organized Health Care Education/Training Program; ATTEND Internal Medicine